=== PATIENT | male | born 2005 | race Hispanic/Latino ===

== ENCOUNTER 2025-07-11 19:14 | Emergency (ER) | payer OTHER ==
[2025-07-11] MEDS ORDERED: Dexamethasone 10 MG/ML VIAL ONE (20:30)
== END 2025-07-11 21:20 | disposition home or self-care (01) ==
LOC: CSHERS 19:14
DX: J18.9 Pneumonia, unspecified organism (principal)
CPT/HCPCS: 71045; 87428; J1100